=== PATIENT | male | born 1970 | race Caucasian/White ===

== ENCOUNTER → 2021-07-30 14:52 | Outpatient (CLI) | payer BC, SELFPAY ==
--- NOTE | ~2021-07-30 | XR_ITS ---
XR knee RT 3V DATE: 07/30/2021 15:27 INDICATION: Right knee pain TECHNIQUE: [place] and standing AP and lateral views COMPARISON: None FINDINGS: No fracture or dislocation or joint effusion. No periosteal reaction or bone destruction. N o radiopaque interarticular loose body or chondrocalcinosis. Joint spaces are relatively well preserv ed. There is slight periarticular spurring at the medial compartment consistent with minimal osteoart hritic change. IMPRESSION: Minimal osteoarthritic change Reviewed, dictated and finalized at location B.
== END ==
PROVIDERS: PCP Family Medicine; Visit Provider Nurse Practitioner Family
DX: M25.561 Pain in right knee (principal)
CPT/HCPCS: 73562

== ENCOUNTER → 2023-03-24 14:53 | Outpatient (CLI) | payer OTHER, SELFPAY ==
--- NOTE | ~2023-03-24 | US_ITS ---
EXAMINATION: US venous doppler [facility] DATE: 03/24/2023 15:38 INDICATION: Left lower limb pain TECHNIQUE: Grayscale ultrasound images without and with compression and Doppler ultrasound images of the bilateral lower extremity veins were obtained. COMPARISON: None. FINDINGS: The visualized portions of right common femoral vein, profunda (deep) femoral vein, femoral vein, pop liteal vein, posterior tibial veins, peroneal veins, gastrocnemius vein and greater saphenous vein ou tflow are patent. The visualized portions of left common femoral vein, profunda femoral vein, femoral vein, popliteal v ein, posterior tibial veins, peroneal veins, gastrocnemius vein and greater saphenous vein outflow ar e patent. IMPRESSION: 1. No deep venous thrombosis in either lower limb. Reviewed, dictated and finalized at location A.
== END ==
PROVIDERS: PCP Family Medicine; Visit Provider Nurse Practitioner Family
DX: M79.605 Pain in left leg (principal)
CPT/HCPCS: 93970

== ENCOUNTER 2025-09-05 12:11 | Emergency (ER) | payer BC, SELFPAY ==
--- NOTE | 2025-09-05 12:16 | ED.WOUNDLAC ---
HPI - Wound/Laceration General Chief Complaint: Wound/Laceration Stated Complaint: RT Hand Finger Cut Time Seen by Provider: 09/05/25 12:24 Source: patient, RN notes reviewed and old records reviewed Mode of arrival: ambulatory Limitations: no limitations History of Present Illness HPI narrative: 54-year-old male presents to the [facility] with a very super fascial cut to the right middle finger on the ulnar aspect. On arrival bleeding is controlled Last Tdap was January 15, 2019 Full range of motion is noted. Cut on a metal cabinet Related Data Allergies Allergy/AdvReac Type Severity Reaction Status Date / Time No Known Allergies Allergy Verified 09/05/25 12:14 Review of Systems Review of Systems: All systems reviewed & are unremarkable except as noted in HPI and below Constitutional: Constitutional: Reports no additional constitutional complaints Musculoskeletal: Musculoskeletal: Reports no additional musculoskeletal complaints Integumentary/Breasts: Skin/Breast: Reports as per HPI and Reports wounds PMFSH Past Medical History Medical History Left knee pain Mixed hyperlipidemia Screening for prostate cancer BMI greater than 40 Morbid (severe) obesity due to excess calories Premature ejaculation Essential (primary) hypertension Testosterone deficiency in male Family History Family History Father Acute myocardial infarction Dementia Mother Uterine cancer Sibling [place] toxicity Bipolar 1 disorder Other Diabetes mellitus Family history of malignant neoplasm of uterus Hypertension Social History Social History Second hand tobacco smoke exposure: Yes Alcohol intake: current Alcohol use details: rare Substance use: never Substance use type: does not use Do You Feel Safe in your Home?: Yes Lack of Transportation: No Lack of Food: Never True Current Housing: I Have Housing Concerned About Future Housing: No Difficulty Paying Gas/Electric Bills: No Difficulty Paying for Meds: No Currently Unemployed: No Education: Bachelor's Degree Difficulty w/ Childcare or Family Care: No Living arrangements: with family Occupation/Education: occupation Additional occupation/education comments: [employer] Gender identity (if verbalized by the patient): Male Comments At the time of my signature, I reviewed and agree with the nursing past medical, surgical, social, and family history. There is no relevant family history pertinent to the patient complaint. Exam Const: General: cooperative, healthy appearing, comfortable, no acute distress, well developed, alert and well nourished Nutritional Appearance: well nourished Orientation/consciousness: patient oriented x3 Limitations: no limitations HENMT: Head: normal to inspection Eyes: General: appearance normal, both eyes and all related structures Alignment and Position: alignment normal Neck: Neck: normal visual inspection, full ROM, no lymphadenopathy and no meningeal signs Chest: Chest palpation & inspection: normal inspection of the chest Resp: Effort & Inspection: normal respiratory effort and able to speak in complete sentences Cardio: Rate: regular rate Skin: General skin exam: normal color and no rashes or lesions noted Wounds: wounds noted right 3rd finger size (1.2cm) and margins well approximated; without any surrounding erythema Neuro: General: patient oriented x3, gait normal, moves all extremities and no meningeal signs Cognition (Neuro): normal cognition Speech: normal speech Gait exam (Neuro): Normal gait present Extrem: General: normal to inspection, full ROM, capillary refill normal and normal gait Psych: Appearance: grossly normal and well kempt Mental Status: mental status grossly normal Speech and movement: Normal speech and movement present and Clear speech present Affect: normal affect Attitude: cooperative Course Course Emergency Course: Wound evaluated, cleaned with total of 200 mils of saline and wound cleanser. No bleeding noted. Edges are well approximated. Does not gape with bending of the finger. Area dried, glued Wound very superficial Level of Care: Express Care Visit Vital Signs Vital signs: Vital Signs Temperature 98.2 F 09/05/25 12:17 Pulse Rate 92 09/05/25 12:17 Respiratory Rate 18 09/05/25 12:17 Blood Pressure 138/86 09/05/25 12:17 Pulse Oximetry 100 09/05/25 12:17 Oxygen Delivery Room Air 09/05/25 12:17 Temperature 98.2 F 09/05/25 12:17 Pulse Rate 92 09/05/25 12:17 Respiratory Rate 18 09/05/25 12:17 Blood Pressure 138/86 09/05/25 12:17 Pulse Oximetry 100 09/05/25 12:17 Oxygen Delivery Room Air 09/05/25 12:17 Reviewed MDM - Wound/Laceration MDM Narrative Medical decision making narrative: Patient sitting in exam room. Patient is nontoxic vitals stable. Patient presents with a little wound to the middle finger right hand. Tetanus updated Area glued Patient appropriate for outpatient treatment with close follow-up Discharge instructions reviewed with patient, as well as provided in writing per nursing staff. The instructions also include specific and strict return/GO TO THE ER as well as f/u information. All questions have been answered, and the patient deny any further questions with discharge and discharge plan. Some parts of this dictation were generated by voice recognition software and may contain typographical and/or grammatical inaccuracies. Differential Diagnosis Differential diagnosis: Likely laceration, abrasion and avulsion of skin Critical Care Time Critical Care Time Critical Care Time: No Discharge Plan Discharge Clinical Impression: Cut of finger, Vaccine for eqofqlhizp-snfhmpe-sybqmjmli, combined Patient Disposition: Home Condition: Stable Instructions: Skin Adhesive Care (ED) Additional Instructions: Wash hands twice daily well with warm soapy water only. Do not use any type of hand construction foreman, creams, ointments for the next 10 days. The skin adhesive will fall off, flake off in the next 7 days. Follow-up with primary care provider as needed Patient Language: Portuguese Prescriptions: No Action meloxicam 15 mg tablet 15 mg PO DAILY Qty: 90 0RF cyclobenzaprine 10 mg tablet 10 mg PO TID PRN (Reason: muscle spasm) Qty: 30 0RF testosterone [AndroGel] 20.25 mg/1.25 gram (1.62 %) gel in metered-dose pump 2 pump topical DAILY Qty: 75 3RF Rx Instructions: apply 1 pump amount over max area of EACH upper arm and shoulder generic please lisinopril-hydrochlorothiazide 20-25 mg tablet See Rx Instructions .ROUTE .COMPLEX Qty: 90 2RF Dose Instruction: TAKE 1 TABLET BY MOUTH EVERY DAY Rx Instructions: TAKE 1 TABLET BY MOUTH EVERY DAY methylphenidate HCl 30 mg capsule,ER biphasic 50-50 30 mg PO DAILY Qty: 30 0RF Follow-up/Referrals: Broderick Carrillo MD [Primary Care Provider, Family Practice] - 2 Weeks Stand Alone Forms: Work/School Release IP Time of Disposition: 12:42
[2025-09-05 12:17] VITALS: BP 138/86; PULSE 92; RESP 18; TEMP 36.8; O2SAT 100
[2025-09-05] MEDS: TETANUS,DIPHTHERIA,AC PERTUSSIS ADULT (0.5 ML) BOOSTRIX IM (12:36)
--- OUTSIDE RECORDS SUMMARY | 2025-09-05 19:28 | XMS_ITS | Encounter Summary ---
Author Organization [facility] Healthcare Address [address] [place] [address] Care Team Providers Care Dining Server Name Role Phone Broderick Carrillo MD Primary Care Provider [phone] Encounter Details Date Type Department Care Team (Latest Contact Info) Description 08/01/2025 Results Follow-Up [facility] [id number] [place] [phone] [place] [phone] [address] Testosterone, Total and Free, Serum Social History Tobacco Use Types Packs/Day Years Used Date Smoking Tobacco: Never Smokeless Tobacco: Never AUDIT-C Answer Date Recorded Q1: How often do you have a drink containing alc ohol? Monthly or less 10/13/2021 Average Number of Drinks Not on file 021 Q3: How often do you have si x or more drinks on one occasion? 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
--- OUTSIDE RECORDS SUMMARY | 2025-09-05 19:28 | XMS_ITS | Clinical Summary ---
Author Organization [facility] [address] [facility] Address [address] [place] [address] Care Team Providers Care Case Briefer Name Role Phone Broderick Carrillo MD Primary Care Provider [phone] Allergies No known active allergies Medications lisinopril-hyd roCHLOROthiazi de (PRINZIDE,ZEST ORETIC) 20-25 mg per tablet TAKE 1 TABLET BY MOUTH EVERY DAY FOR HYPERTENSION 90 tablet 06/01/20 19 Active methylphenidat e LA (RITALIN LA) 30 mg 24 hr capsule 0 09/29/20 21 Active FLUoxetine (PROzac) 20 mg capsule Take 1 capsule (20 mg total) by mouth daily Active testosterone cypionate (DEPO-TESTOTER ONE) 200 mg/mL injectionIndic ations:Hypogon adism in male 200 mg IM every 7 days 12 mL 2 08/13/20 25 Active syringe with needle, safety 3 mL 25 gauge x 5/8 syringeIndicat ions:Hypogonad ism in male Used to inject testosterone intramuscularly every week 50 each 3 08/14/20 25 Active testosterone cypionate (DEPO-TESTOTER ONE) 200 mg/mL injection Inject 1 mL (200 mg total) into the muscle as instructed every 14 (fourteen) days 10 mL 3 01/24/20 25 025 Discontin ued(Reord er) syringe with needle, safety 3 mL 25 gauge x 5/8 syringeIndicat ions:Hypogonad ism in male Used to inject testosterone intramuscularly every 2 weeks 50 each 3 03/14/20 25 025 Discontin ued(Reord er) syringe with needle, safety 3 mL 25 gauge x 5/8 syringeIndicat ions:Hypogonad ism in male Used to inject testosterone intramuscularly every week 50 each 3 08/12/20 25 025 Discontin ued(Reord er) testosterone cypionate (DEPO-TESTOTER ONE) 200 mg/mL injectionIndic ations:Hypogon adism in male Inject 0.5 mL (100 mg total) into the muscle as instructed every 7 days 10 mL 3 08/12/20 25 025 Discontin ued(Reord er) Active Problems Problem Noted Date Diagnosed Date Hypogonadism in male 07/14/2019 Assessment & Plan (01/23/2025 1:19 PM CDT): Chronic problem. Currently taking testosterone injections 200mg every other week. Has not yet had levels repeated since switching from Androgel 07/2024. Will update labs at [facility]. Verified that he uses mychart. Aware to check results/results letter in mychart. Will contact by phone if needed. Assessment & Plan (06/11/2024 10:38 AM CDT): Chronic problem. Doing well on current dose (androgel 4 pumps daily). Active at work but sedentary once home. To increase activity as he can. Will update labs at [facility]. Verified that he uses my[facility]. Aware to check results/results letter in mychart. Will contact by phone if needed. Assessment & Plan (06/28/2023 5:15 PM CDT): Continue T replace Update PSA and CBC Assessment & Plan (06/29/2022 3:45 PM CDT): Increase Androgel 6 squirts daily Assessment & Plan (10/13/2021 12:07 PM TUNNEL MINER): I had a lengthy discussion with Mr. Dean about pathophysiology of hypogonadism, goals of treatment, different testosterone preparations and possible side effects T replacement. I have ordered morning testosterone level, along with prolactin, FSH, PSA and CBC Since he seems to be responding well to the treatment with androgel I have recommended to continue this but adjust the dose to target testosterone levels around 400 . Hypertension, essential 07/14/2019 Body mass index (BMI) 40.0-44.9, adult 8 Morbid (severe) obesity due to excess calories 0 06/08/2018 Encounters Date Type Department Care Team Description 08/12/2025 Telephone [facility] Group Diabetes and Endocrinology [address] [place] [phone] Ari Lima MD Refill Request 08/01/2025 Results Follow-Up [facility] Specialists of [address] [phone] Ari Lima MD Testosterone, Total and Free, Serum 07/22/2025 11:45 AM CDT Office Visit [facility] Special[facility] of [address] [phone] Ari Lima MD Hypogonadism in male (Primary Dx) 07/22/2025 Orders Only [facility] Special[facility] of [address] [phone] Ari Lima MD 07/04/2025 Telephone [facility] Medical Group Diabetes and Endocrinology [address] [place] [phone] Tracee Collazo NP Appointment/Schedule s from Last 3 Months Immunizations Immunization Administration Dates Next Due Tdap 01/15/2019 Surgical History Surgery Date Site/Laterality Comments NO PAST SURGERIES Medical History Medical History Date Comments Hypertension Mood swings Fatigue Excessive sweating Family History Medical History Relation Name Comments Bipolar disorder Brother Hypertension Brother Dementia Father Heart attack Father Stroke Father Kidney cancer Mother Ovarian cancer Mother Hypertension Sister Relation Name Status Comments Brother Alive Father Mother Sister Alive Social History Tobacco Use Types Packs/Day Years Used Date Smoking Tobacco: Never Smokeless Tobacco: Never AUDIT-C Answer Date Recorded Q1: How often do you have a drink containing alc ohol? Monthly or less 10/13/2021 Average Number of Drinks Not on file Q3: How often do you have si x or more drinks on one occasion? 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 Gender Identity Male 04/04/2023 8:00 PM CDT Sexual Orientation Straight 04/04/2023 8: 00 PM CDT Last Filed Vital Signs Vital Sign Reading Time Taken Comments Blood Pressure 124/82 07/22/2025 11:55 AM CDT Pulse 68 07/22/2025 11:55 AM CDT Temperature - - Respiratory Rate 12 07/22/2025 11:5 5 AM CDT Oxygen Saturation 96% 01/15/2019 5:30 PM CDT Inhaled Oxygen Concentration - - Weight 132.8 kg (292 lb 12.8 oz) 2024 11:55 AM CDT Height 177.8 cm (5' 10) 07/22/2025 11: 55 AM CDT Body Mass Index 42.01 07/22/2025 11:55 AM CDT Plan of Treatment Health Maintenance Due Date Last Done Comments Colon Cancer Screening-Colonoscopy 1968 Hepatitis C Screening 1968 Hepatitis B Screening 1986 Zoster Vaccine (1 of 2) 2018 Regular Well Visit/Exam 18-64 01/16/2020 01/15/2019 Depression Screening 06/29/2023 06/29/2022 Covid-19 Vaccine ( season) 2025 11/09/2021, 01/08/2021 Influenza Vaccine (#1) 2025 , 08/11/2022, 08/13/2021, Additional history exists Prostate Cancer Screening-PSA 02/09/2027 02/09/2025, 07/14/2024, 06/28/2023, Additional history exists DTaP/Tdap/Td Vaccine (2 - Td or Tdap) 01/15/2029 01/15/2019 Pneumococcal vaccine <65 Aged Out No longer eligible based on patient's age to complete this topic Procedures Procedure Name Priority Date/Time Associated Diagnosis Comments TESTOSTERONE, TOTAL AND FREE, SERUM Routine 07/22/2025 3:10 PM CDT PSA SCREEN Routine 02/09/2025 9:12 AM CDT Hypogonadism in male from Last 3 Months or Most Recently Relevant to Health Maintenance Results * (ABNORMAL) Testosterone, Total and Free, Serum (07/22/2025 3:10 PM CDT) Testosterone 207(L) 264 - 916 ng/dL [facility] - 01 Comment: Adult male reference interval is based on a population of healthy nonobese males (BMI <30) between 19 and 39 years old. Lynn et.al. JCEM 2017,102;2012-7001. PMID: [id number]. Free Testosterone(Dire ct) 7.3 7.2 - 24.0 pg/mL [facility] 02 07/22/2025 3:10 PM CDT 07/22/2025 Narrative [facility] - 07/27/2025 3:35 AM CDT Performed at: - [facility] [id number] Parts Counter Specialist: Juan Sharma PhD, Phone: [phone] Performed at: - [facility] [id number] Parts Counter Specialist: Nighat Jama MD, Phone: [phone] us Ari Lima MD LAB BLOOD ORDERABLES Final Resul t [facility] - 01 [facility] 02 * PSA screen (02/09/2025 9:12 AM CDT) PSA 0.7 0.0 - 4.0 ng/mL [facility] - 01 Comment: Karine ECLIA methodology. According to the [employer] [employer], Serum PSA should decrease and remain at undetectable levels after radical prostatectomy. The AUA defines biochemical recurrence as an initial PSA value 0.2 ng/mL or greater followed by a subsequent confirmatory PSA value 0.2 ng/mL or greater. Values obtained with different assay methods or kits cannot be used interchangeably. Results cannot be interpreted as absolute evidence of the presence or absence of malignant disease. Blood 02/09/2025 9:12 AM CDT 02/09/2025 Narrative [facility] - 02/10/2025 9:09 AM CDT Performed at: - [facility] [address] [id number] Parts Counter Specialist: Juan Sharma PhD, Phone: [phone] us Tracee Collazo NP LAB BLOOD ORDERABLES Radha marie Result [facility] - 01 from Last 3 Months or Most Recently Relevant to Health Maintenance Insurance [id number] [place] [id number] [place] [address] Care Teams Case Briefer Relationship Specialty Start Date End Date Broderick Carrillo MD PCP - General Family Medicine 02/25/23
--- OUTSIDE RECORDS SUMMARY | 2025-09-05 19:28 | XMS_ITS | Clinical Summary ---
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 Gender Identity Not on file Sexual Orientation Not on file Plan of Treatment Health Maintenance Due Date Last Done Comments Hepatitis C Virus (HCV) Screening 1968 Hepatitis B Immunization (1 of 3 - 19+ 3-dose series) 1987 Cologuard 2013 Colonoscopy 2013 Colorectal Cancer Screening 2013 Immunochemical Fecal Occult Blood 2013 Pneumococcal Immunization (5 0+ years) (1 of 1 - PCV) 2018 Zoster Immunization (1 of 2) 2018 Influenza Immunization (#1) 07/01/202507/31, 07/31/2020 SARS-COV-2 Immunization ( - season) 2025 11/09/2021, 01/08/2021 Respiratory Syncytial Virus (RSV) Immunization (Adult) (1 - 1-dose 75+ series) 2043 DTaP/Tdap/Td Immunization Discontinued 01/15/2019 TdaP Immunization Completed 01/15/2019 Human Papillomavirus (HPV) Immunization Aged Out No longer eligible based on patient's age to complete this topic Meningococcal Immunization (ACWY) Aged Out No longer eligible based on patient's age to complete this topic Rotavirus Immunization Aged Out No lo nger eligible based on patient's age to complete this topic
== END 2025-09-05 12:51 | disposition home or self-care (01) ==
PROVIDERS: Emergency Provider Nurse Practitioner; PCP Family Medicine
DX: S61.212A Laceration without foreign body of right middle finger without damage to nail, initial encounter (principal); W45.8XXA Other foreign body or object entering through skin, initial encounter; Z23 Encounter for immunization; I10 Essential (primary) hypertension; E78.2 Mixed hyperlipidemia; E66.01 Morbid (severe) obesity due to excess calories; Z68.41 Body mass index [BMI] 40.0-44.9, adult
CPT/HCPCS: 12001; 90471; 90715; 99212; G0463